=== PATIENT | female | born 1970 | race Caucasian/White ===

== ENCOUNTER 2017-03-31 15:07 | Emergency (ER) | payer MEDICAID, SELFPAY ==
[~2017-03-31] VITALS: Ht 162.6 cm; Wt 110.2 kg
[2017-03-31 15:08] VITALS: BP 173/104
[2017-03-31 15:53] LABS: BASO % 0.3 % (0.0-1.0); EOS # 0.2 K/mm3 (0.0-0.50); EOS % 2.4 % (0.0-3.0); LARGE UNSTAINED CELL # 0.1 K/mm3 (0.0-0.4); LYMPH # 1.6 K/mm3 (1.5-4.5); LYMPH % 14.9 % (24.0-44.0); MEAN CORPUSCULAR HEMOGLOBIN 31.9 pg (27.0-33.0); MEAN CORPUSCULAR HGB CONC 35.6 g/dl (32.0-36.5); MEAN CORPUSCULAR VOLUME 89.6 fl (80.0-96.0); MONO # 0.4 K/mm3 (0.0-0.8); MONO % 4.4 % (0.0-5.0); NEUTROPHILS # 7.7 K/mm3 (1.8-7.7); NEUTROPHILS % 76.9 % (36.0-66.0); PLATELET COUNT, AUTOMATED 175 k/mm3 (150-450); RED CELL DISTRIBUTION WIDTH 14.5 % (11.5-14.5)
[2017-03-31 16:00] LABS: INR 0.98
[2017-03-31 16:10] LABS: CREATININE FOR GFR 1.56 MG/DL (0.55-1.02); GLOMERULAR FILTRATION RATE 37.9 (>58); POTASSIUM SERUM 3.7 MEQ/L (3.5-5.1)
--- NOTE | 2017-03-31 16:48 | REP ---
REASON: Pelvic pain. PERTINENT PRIORS: None. Transvesical and transvaginal imaging was obtained. Uterus measures 9.1 x 5 x 5.7 cm. The parenchymal echo pattern is somewhat heterogenous but there are no discrete masses. The endometrial echo complex measures 7 mm in this greatest thickness. There is no free fluid in the cul-de-sac. The right ovary was not visualized there was no evidence of a right adnexal mass. Left ovary measures 2.3 x 1.3 x 2.3 cm and is within normal limits with an RI of 0.79. Urinary bladder was empty and could not be measured. IMPRESSION: Full sized uterus with evidence of early myomatous change but without evidence of a discrete mass. Signed by Mando Miller DO 03/31/2017 04:53 P
== END 2017-03-31 17:25 | disposition left against medical advice (07) ==
LOC: M ED 16:57
DX: N93.8 Other specified abnormal uterine and vaginal bleeding (principal); R10.2 Pelvic and perineal pain; Q60.0 Renal agenesis, unilateral; F17.200 Nicotine dependence, unspecified, uncomplicated

== ENCOUNTER 2017-04-01 18:29 | Inpatient (IN) | payer MEDICAID, OTHER, SELFPAY ==
[~2017-04-01] VITALS: Ht 162.6 cm; Wt 112.4 kg
[2017-04-01] MEDS ORDERED: MORPHINE 4 MG/ML 1ML SYRINGE IV ONE (19:15)
[2017-04-01] MEDS ORDERED: NS 1,000 ML IV ONE (19:30)
[2017-04-01] MEDS ORDERED: cefTRIAXone SOD 1 GM in D5W MINI-BAG PLUS 50 ML IV ONE (20:15)
[2017-04-01] MEDS ORDERED: ONDANSETRON 4MG/2ML VIAL (J2405) IV PRN (20:30)
[2017-04-01] MEDS ORDERED: PROMETHAZINE INJ 25 MG/ML VIAL (J2550) IV PRN (20:30)
[2017-04-01] MEDS ORDERED: NORCO, ANEXSIA 5/325MG TABLET (HYDROcodone/ACETAMINOPHEN) PO PRN ×2 (20:30)
[2017-04-01] MEDS ORDERED: MORPHINE 2 MG/ML 1ML SYRINGE IV PRN (20:30)
[2017-04-01] MEDS ORDERED: MORPHINE 4 MG/ML 1ML SYRINGE IV PRN (20:30)
[2017-04-01] MEDS ORDERED: METOCLOPRAMIDE INJ 10MG/2ML VIAL (J2765) IV PRN (20:30)
[2017-04-01] MEDS ORDERED: cefTRIAXone SOD 1 GM in D5W MINI-BAG PLUS 50 ML IV SCH (21:00)
[2017-04-01 21:35] VITALS: BP 172/87
[2017-04-01] MEDS: LR 1,000 ML IV SCH ×2 (21:53→22:51)
[2017-04-01] MEDS: metroNIDAZOLE 500 MG in APPROPRIATE DILUENT 1 EA IV SCH (21:58)
[2017-04-01] MEDS ORDERED: ACETAMINOPHEN TAB 650MG DOSE (2X325MG) PO PRN (22:45)
[2017-04-01] MEDS: KETOROLAC 30 MG/ML VIAL (J1885) IV PRN (22:50)
[2017-04-01] MEDS: CIPROFLOXACIN 400 MG in APPROPRIATE DILUENT 1 EA IV SCH (22:50)
--- NOTE | 2017-04-02 00:19 | HPE ---
DATE OF ADMISSION: 04/01/2017 CHIEF COMPLAINT: Abdominal pain times 5 days. BRIEF HISTORY OF PRESENT ILLNESS: The patient is a 46-year-old female who presented to the emergency room yesterday with abdominal pain that had been going on for about 4 days. She was seen. She had an elevated white count of 10,000 with a left shift, but unfortunately left AGAINST MEDICAL ADVICE because of family commitments. She states that she has not had any diarrhea. No nausea or vomiting, although has had this severe abdominal pain that has been at 10/10 even up to 4-5 days prior to this admission. She states she does not know if she has had any fevers or chills. Did have a pelvic ultrasound yesterday, did not wait for the results of this, however, and the pelvic ultrasound showed no significant uterine or gynecological ([employer]) abnormalities. She had continued abdominal pain today, same as it was yesterday and felt that she would receive quicker service, went to [facility] and was evaluated in the emergency room and underwent a CT scan. The CT scan showed a significantly inflamed terminal ileum for a significant length, as well as some edematous appendix. The appendix is measured at 15 cm; however, when I look at the measurement it seems as though it is measuring the mesoappendix, as well as the appendix itself. There is no evidence of rupture, abscess, etc. PAST MEDICAL HISTORY: Significant for: 1. History of morbid obesity. 2. History of (C) section. 3. History of tubal ligation. MEDICATIONS: None. ALLERGIES: None. PHYSICAL EXAMINATION: Reveals a 46-year-old female who looks stated age. HEENT is unremarkable. Neck: Supple without adenopathy. Lungs are clear to auscultation without crackles, wheezes or rhonchi. Heart is regular without murmur. Abdomen is morbidly obese. She does have some tenderness in the infraumbilical area with some guarding without significant rebound. She has no generalized peritonitis. IMPRESSION AND PLAN: The patient has had an ongoing inflammatory/infectious process for 4-5 days now. The radiologist is not sure if this is appendicitis, although it could be, but given her history the clinical course is not convincing for a typical acute appendicitis unless it was truly acute appendicitis 5 days prior and has been smoldering for that amount of time. The other possibility is that she has inflammation in her terminal ileum and abutting this is the appendix and this in addition has become edematous and swollen secondary to the inflammation of the terminal ileum. Given the patient's significant morbid obesity, the extremely atypical presentation/history associated with possible appendicitis, my recommendation is that we start her on intravenous (IV) fluids, IV antibiotics and observe her over the ensuing 12-24 hours to see how she progresses. My concern at this time is that she has some renal insufficiency and she needs some aggressive fluid resuscitation. Some of her elevated white count of 12,000 may also be secondary to some dehydration issues. Will start the IV antibiotics at this time, keep her nothing by mouth, IV fluids and start IV pain medication as needed. Once again, she seems to be moving around relatively well in bed at this point and states that her abdominal pain is about a 7/10 at this time whereas she has had times where it has been 10/10 over the last 4-5 days. Will see how she does with the treatment and supportive care and reevaluate her on an ongoing basis.
[2017-04-02 02:00] VITALS: BP 128/76
[2017-04-02] MEDS: LR 1,000 ML IV SCH ×3 (04:01→09:23)
[2017-04-02 06:00] VITALS: BP 137/76
[2017-04-02] MEDS: metroNIDAZOLE 500 MG in APPROPRIATE DILUENT 1 EA IV SCH ×2 (06:13→14:26)
[2017-04-02] MEDS: KETOROLAC 30 MG/ML VIAL (J1885) IV PRN (06:14)
[2017-04-02 06:20] LABS: MEAN CORPUSCULAR HEMOGLOBIN 31.1 pg (27.0-33.0); MEAN CORPUSCULAR HGB CONC 33.6 g/dl (32.0-36.5); MEAN CORPUSCULAR VOLUME 92.3 fl (80.0-96.0); RED CELL DISTRIBUTION WIDTH 14.4 % (11.5-14.5); WHITE BLOOD COUNT 11.2 K/mm3 (4.0-10.0)
[2017-04-02 06:32] LABS: CALCIUM LEVEL 7.6 MG/DL (8.5-10.1); CREATININE FOR GFR 1.59 MG/DL (0.55-1.02); POTASSIUM SERUM 3.4 MEQ/L (3.5-5.1)
[2017-04-02] MEDS ORDERED: PANTOPRAZOLE 40MG INJ (PROTONIX) (C9113) IV SCH (09:00)
[2017-04-02 10:00] VITALS: BP 154/80
[2017-04-02] MEDS: CIPROFLOXACIN 400 MG in APPROPRIATE DILUENT 1 EA IV SCH (11:00)
[2017-04-02 14:00] VITALS: BP 146/75
[2017-04-02] MEDS ORDERED: FLAG500T PO (14:40)
[2017-04-02] MEDS ORDERED: CIPR500S PO (14:40)
[2017-04-02] MEDS ORDERED: cefTRIAXone SOD 1 GM VIAL (J0696) IM ONE (15:00)
[2017-04-02] MEDS ORDERED: cefTRIAXone SOD 1 GM in D5W MINI-BAG PLUS 50 ML IV SCH (21:00)
== END 2017-04-02 16:00 | disposition home or self-care (01) | DRG 251 ==
LOC: M ED 19:18 → M ED INP 20:16 → M MSPAV 21:33
PROVIDERS: ADMIT Surgery; ATTEND Surgery
DX: R10.9 Unspecified abdominal pain (principal); E66.01 Morbid (severe) obesity due to excess calories

== ENCOUNTER → 2025-05-07 | Outpatient (REF) | payer OTHER, MEDICAID ==
[~2025-05-07] MED LIST: CIPR500S PO; FLAG500T PO
[2025-05-07 17:22] LABS: ESTIMATED AVERAGE GLUCOSE 143.0 MG/DL (60-110)
[2025-05-07 17:26] LABS: ALT/SGPT 22.0 U/L (7.0-40); AST/SGOT 21.0 U/L (<34); CALCIUM LEVEL 9.3 MG/DL (8.5-10.1); CARBON DIOXIDE LEVEL 20.0 MMOL/L (20-31); CHLORIDE LEVEL 110.0 MMOL/L (98-107); CHOLESTEROL LEVEL 144.0 MG/DL (<200); CHOLESTEROL RISK RATIO 4.44 (<5); CREATININE FOR GFR 1.98 MG/DL (0.55-1.30); GLOMERULAR FILTRATION RATE 29.1 (>51); LDL CHOLESTEROL 55.6 MG/DL (<100); NON-HDL-C 111.6 MG/DL; POTASSIUM SERUM 4.2 MMOL/L (3.5-5.1); SODIUM LEVEL 144.0 MMOL/L (136-145); TRIGLYCERIDES LEVEL 280.0 MG/DL (<150)
== END ==
LOC: M LAB REF 16:23
PROVIDERS: ATTEND Family Medicine Addiction Medicine
DX: E11.9 Type 2 diabetes mellitus without complications (principal)